=== PATIENT | female | born 1935 | race Hispanic/Latino ===

== ENCOUNTER 2017-01-08 12:02 | Outpatient (CLI) | payer MEDICARE ==
--- NOTE | 2017-01-08 13:59 | XRay Report ---
LEFT KNEE THREE VIEWS: 01/08/17 12:02:00 CLINICAL: Pain. Anemia and myelodysplastic syndrome. FINDINGS: Normal bones, joints and soft tissues. No bone lesion. No fracture or dislocation. No joint effusion. IMPRESSION: Normal study.
--- NOTE | 2017-01-08 14:19 | XRay Report ---
LUMBAR SPINE THREE VIEWS: 01/08/17 12:02:00 CLINICAL: Anemia. Myelodysplastic syndrome. FINDINGS: Mild levoscoliosis centered at L2-3. No bone lesions. The pedicles are intact. No fracture. Normal alignment. Degenerative disease with narrowing of the disc space and anterior osteophytes at L2-3, L3-4 and L5-S1. Facet joint sclerosis from L2-3 through L5-S1. Calcification of the abdominal aorta. IMPRESSION: Scoliosis and altered level degenerative disc disease and multilevel facet joint arthropathy. No suspicious bone lesion.
== END 2017-01-08 12:03 | disposition home or self-care (01) ==
LOC: SPVIMAG 12:02
PROVIDERS: ATTEND Internal Medicine Hematology & Oncology
DX: M51.37 Other intervertebral disc degeneration, lumbosacral region (principal); M41.86 Other forms of scoliosis, lumbar region; D64.9 Anemia, unspecified; M25.78 Osteophyte, vertebrae; I70.0 Atherosclerosis of aorta; M12.88 Other specific arthropathies, not elsewhere classified, other specified site; M25.562 Pain in left knee
CPT/HCPCS: 72100